=== PATIENT | female | born 1955 | race Caucasian/White ===

== ENCOUNTER 2017-01-23 05:07 | Emergency (ER) | payer SELFPAY ==
[~2017-01-23] VITALS: Ht 157.5 cm; Wt 60.0 kg
[2017-01-23] MEDS ORDERED: ASPI-650 PO (05:31)
[2017-01-23] MEDS ORDERED: SODIUM CHLORIDE 0.9% 1,000 ML IV ONE (05:41)
[2017-01-23] MEDS ORDERED: SODIUM CHLORIDE 0.9% 1,000ML IVBOLUS ONE (06:00)
[2017-01-23] MEDS ORDERED: SODIUM CHLORIDE FLUSH 10ML SYR IVF ONE (06:00)
[2017-01-23 06:25] VITALS: BP 110/75
[2017-01-23 06:35] LABS: HEMOGLOBIN 12.2 g/dL (11.7-16.4)
[2017-01-23 06:42] LABS: ASPARTATE AMINO TRANSFERASE 20 U/L (15-37); BLOOD UREA NITROGEN 9 mg/dL (7-18)
[2017-01-23] MEDS ORDERED: POTASSIUM CHLORIDE 20 MEQ TAB.ER.PRT PO ONE (07:00)
== END 2017-01-23 07:23 | disposition home or self-care (01) ==
LOC: ED 06:40
DX: R10.31 Right lower quadrant pain (principal); E87.6 Hypokalemia; K56.7 Ileus, unspecified
CPT/HCPCS: 36415; 74176; 80053; 81003; 85025